=== PATIENT | female | born 1930 | race Caucasian/White ===

== ENCOUNTER 2017-08-17 20:19 | Observation (INO) ==
[2017-08-17] MEDS ORDERED: Acetaminophen 325 MG TABLET PO ONE (21:11)
[2017-08-17] MEDS ORDERED: Levofloxacin 750 MG/150 ML 750 MG/150 ML BAG IVPB ONE (21:11)
[2017-08-17 21:54] LABS: Basophils % 0.3 %; Eosinophils % 0.1 %; Hematocrit 37.1 % (35.3-44.9); Hemoglobin 12.3 g/dL (11.5-15.4); Immature Granulocytes % 0.7 % (0-4); Lymphocytes # 1.3 K/mcL (0.6-4.6); Lymphocytes % 9.5 %; Mean Corpuscular HGB Conc 33.2 g/dL (31.6-35.5); Mean Corpuscular Hemoglobin 30.5 pg (28.0-33.3); Mean Corpuscular Volume 92.1 fL (83.0-100.0); Mean Platelet Volume 10.6 fL (9.4-12.4); Monocytes # 1.3 K/mcL (0.0-1.3); Monocytes % 9.4 %; Platelet Count 169 K/mcL (140-400); Red Blood Count 4.03 M/mcL (3.82-4.97); Red Cell Distribution Width 13.5 % (11.5-14.5)
[2017-08-17 21:56] LABS: INR 1.1; Prothrombin Time 12.2 Seconds (9.4-12.1)
--- NOTE | 2017-08-17 21:59 | Emergency Department Note ---
Disposition Clinical Impression: Weakness Fever Qualifiers: Fever type: unspecified Qualified Code(s): R50.9 - Fever, unspecified Disposition: Admitted As Inpatient Referrals: NONE,PCP [Primary Care Provider] - Time of Disposition: 00:21 Weakness HPI - General Chief complaint: ED Weakness Stated complaint: weakness unable to ambulate Time Seen by Provider: 08/17/17 21:05 Source: patient, EMS Limitations: no limitations Nursing Notes Reviewed: Yes Vital Signs Reviewed: Yes - History of Present Illness HPI Narrative: Patient lives alone and does well on her own usually but over the last 3 days developed bilateral leg pain and achiness. States that it started in her right ankle. Initially felt like the gout. She reports that then it radiated up her leg and notes into her right arm and all of her joints in her left leg as well. Patient states that she got so weak in the last 24 hours that she was unable to get out of her chair. She had to call family member or neighbor to come help her and then today when she was so weak she called life squad to bring her here. She did not recognize that she had a fever. But she states that she does not have the strength to stand. She reports a cough over the last few days. Denies sputum production. She states that she is slightly dyspneic on exertion but is no worse than her baseline. She denies any dysuria, chest pain, abdominal pain, or rash Eyes headache or stiff neck Pt Subjective Complaint: generalized weakness/fatigue Onset (ago): day(s) (3) Duration: constant Location: generalized, RUE, LLE, RLE Migration: none Pain Severity: moderate Pain Scale: 8 If pain, quality: dull Improves with: rest Worsens with: movement Associated symptoms: Reports: denies other symptoms, loss of appetite - Related Data Allergies Allergy/AdvReac Type Severity Reaction Status Date / Time No Known Allergies Allergy Verified 08/17/17 20:31 All systems ED: reviewed and negative except as stated. Review of Systems: As Per HPI Past Medical History - Past Medical History Medical history: Reports: hypertension, thyroid disease - Social History Smoking Status: Never smoker Alcohol use: Reports: none Drug use: Reports: none Physical Exam Constitutional: Patient is oriented to person, place, and time. Skin color is pale Appears dry body habitus elderly and frail. Non toxic appearing. Head: Normocephalic and atraumatic. External ear exam normal Nose: Nose normal. Mouth/Throat: Uvula is midline, oropharynx is clear and dry Eyes: Conjunctivae nl, extraocular motions and lids are normal. Pupils are equal , round, and reactive to light. Neck: Normal range of motion and phonation normal. Neck supple. Cardiovascular: Normal rate, regular rhythm, normal heart sounds. Pacemaker left upper anterior chest which is not tender or erythematous. Patient also has pectus excavatum Pulmonary/Chest: No Respiratory distress. Respiratory Effort normal and breath sounds clear. Abdominal: Soft. Normal appearance and bowel sounds are normal. no tenderness, no masses, no guarding, no rebound Genital area has no evidence of labial swelling or redness. No obvious masses or lesions on external exam Musculoskeletal: Good distal pulses. Soft compartments. Brisk cap refill. But the patient does seem to be weak. Her muscles are quite thin but they are not firm and there is no tenderness on palpation of any of her muscles. She reports pain in her joints specifically her right knee and her left knee but not erythematous or warm. She does have limited range of motion because of pain in these joints. States that her hips do not hurt as bad as her knees. Extremities: Limited range of motion by pain.Intact peripheral pulses. No Edema. Extremity skin color nl, no calf tenderness or palpable cords. Neurological: GCS 15. 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 Speech clear and articulate. No facial droop. Patient is alert and oriented without evidence of obvious motor deficits Skin: Skin is warm, dry and intact. color is pale, cap refill is quick Psychiatric: Patient has normal mood and affect. Patient speech is normal and behavior is normal. Thought content normal. - General Limitations: no limitations General appearance: alert Course - Reevaluation(s) Reevaluation #1: Patient states she feels a bit better but she does not have a clear etiology of her fever. Neither do I have a reason for her joint aches. I returned to the bedside and obtained further history. And she states now she is actually hurting more in her right wrist. Her right knee. Her left knee. I reexamined her joints and there is some swelling of the right knee. But there is no erythema or any warmth. I elected to perform x-rays to evaluate for any acute fracture but also will do aspiration of the right knee to determine possible septic arthritis. I do feel as though she will require hospitalization since she cannot ambulate I considered the possibility of meningitis however she has no headache, no stiff neck, mentating completely appropriately. And I did not feel as though lumbar puncture was indicated at this time I reexamined skin and found no skin lesions or rash Her abdomen is soft and nontender to palpation although certainly at her age she could have intra-abdominal cause of her fever without significant physical exam findings and CT abdomen may be warranted Time: 22:54 Reevaluation #2: Vitals have improved with the patient's source of fever and acute joint pain is not been identified. Sedimentation rate pending. I talked with patient and elected to do right knee aspiration to determine possibility of septic arthritis. Ultrasound showed fluid collection and I obtained 9 mL of yellow fluid sent to lab. Patient is having too much pain to stand. She lives alone. She requires hospitalization. I will contact hospitalist to discuss case Time: 00:09 Reevaluation #3: Message left with hospitalist Dr. Morataya Time: 00:13 - Consultations Consultation #1: disc case w/ dr Bowles who agrees to accept pt in hospital for observation and testing. synovial fluid pending, this is a send out at this faciliyt. pt sts feeling better, she is aware and agreeable to inpt stay. Dr. Morataya has requested that I place inpatient orders as a courtesy. We have discussed them in detail. Time: 00:19 Vital Signs Temperature 100 F H 08/17/17 20:26 Pulse Rate 71 08/17/17 20:26 Respiratory Rate 18 08/17/17 20:26 Blood Pressure 143/81 08/17/17 20:26 O2 Sat by Pulse Oximetry 92 08/17/17 20:26 Temperature 100 F H 08/17/17 20:26 Pulse Rate 62 08/17/17 22:15 Respiratory Rate 18 08/17/17 22:15 Blood Pressure 191/75 08/17/17 22:15 O2 Sat by Pulse Oximetry 95 08/17/17 22:15 Oxygen Delivery Oxygen Delivery Room Air Weakness - MDM Narrative Medical decision making narrative: Elderly but otherwise well female with fever. We will determine cause by workup - Medical Records Medical records reviewed: Yes I reviewed the patient's medical records. - Lab Data Lab results reviewed: Yes I reviewed the patient's lab results. Result diagrams: 08/17/17 21:50 08/17/17 21:50 Lab Results 08/17/17 08/17/17 08/17/17 Range/Units 21:50 21:50 21:50 WBC 13.7 H (4.3-11.1) K/mcL RBC 4.03 (3.82-4.97) M/mcL Hgb 12.3 (11.5-15.4) g/dL Hct 37.1 (35.3-44.9) % MCV 92.1 (83.0-100.0) fL MCH 30.5 (28.0-33.3) pg MCHC 33.2 (31.6-35.5) g/dL RDW 13.5 (11.5-14.5) % Plt Count 169 (140-400) K/mcL MPV 10.6 (9.4-12.4) fL Immature Gran % 0.7 (0-4) % Seg Neutrophils % 80.0 % Lymphocytes % 9.5 % Monocytes % 9.4 % Eosinophils % 0.1 % Basophils % 0.3 % Neutrophils # 11.0 H (1.6-8.9) K/mcL Lymphocytes # 1.3 (0.6-4.6) K/mcL Monocytes # 1.3 (0.0-1.3) K/mcL Eosinophils # 0.0 (0.0-0.6) K/mcL Basophils # 0.0 (0.0-0.2) K/mcL PT 12.2 H (9.4-12.1) Seconds INR 1.1 Sodium 132 L (136-145) mEq/L Potassium 4.2 (3.5-5.1) mEq/L Chloride 99 (98-107) mEq/L Carbon Dioxide 24 (23-29) mEq/L BUN 24 H (8-23) mg/dL Creatinine 1.15 (0.60-1.20) mg/dL Est GFR ( Amer) 54 L (> 60) Est GFR (Non-Af Amer) 44 L (> 60) BUN/Creatinine Ratio 21 (6-26) Glucose 138 H (70-105) mg/dL Calculated Osmolality 280 (280-300) Lactic Acid (0.5-2.2) mmol/L Calcium 9.6 (8.6-10.3) mg/dL Total Bilirubin 1.1 H (0.3-1.0) mg/dL Direct Bilirubin 0.2 (0.0-0.2) mg/dL Indirect Bilirubin 0.9 (0.0-1.2) mg/dL AST 14 (13-39) Units/L ALT 12 (7-52) Units/L Alkaline Phosphatase 41 (34-104) Units/L Troponin I < 0.03 (< 0.04) ng/mL Serum Total Protein 7.0 (6.4-8.9) g/dL Albumin 4.0 (3.5-5.7) g/dL Globulin 3.0 (2.4-3.5) g/dL Albumin/Globulin Ratio 1.3 (1.1-2.2) Urine Color (Yellow) Urine Clarity (Clear) Urine pH (5.0-8.0) pH Units Ur Specific [place] (1.010-1.025) Urine Protein (Neg-Trace) mg/dL Urine Glucose (UA) (Normal) mg/dL Urine Ketones (Negative) mg/dL Urine Blood (Negative) Urine Nitrite (Negative) Urine Bilirubin (Negative) Urine Urobilinogen (Normal) mg/dL Ur Leukocyte Esterase (Negative) Urine Microscopic RBC (0-3) per hpf Amorphous Sediment (Few) Hyaline Casts (None-Few) per lpf Ur Culture Indicated? (NO) 08/17/17 08/17/17 Range/Units 21:50 22:10 WBC (4.3-11.1) K/mcL RBC (3.82-4.97) M/mcL Hgb (11.5-15.4) g/dL Hct (35.3-44.9) % MCV (83.0-100.0) fL MCH (28.0-33.3) pg MCHC (31.6-35.5) g/dL RDW (11.5-14.5) % Plt Count (140-400) K/mcL MPV (9.4-12.4) fL Immature Gran % (0-4) % Seg Neutrophils % % Lymphocytes % % Monocytes % % Eosinophils % % Basophils % % Neutrophils # (1.6-8.9) K/mcL Lymphocytes # (0.6-4.6) K/mcL Monocytes # (0.0-1.3) K/mcL Eosinophils # (0.0-0.6) K/mcL Basophils # (0.0-0.2) K/mcL PT (9.4-12.1) Seconds INR Sodium (136-145) mEq/L Potassium (3.5-5.1) mEq/L Chloride (98-107) mEq/L Carbon Dioxide (23-29) mEq/L BUN (8-23) mg/dL Creatinine (0.60-1.20) mg/dL Est GFR ( Amer) (> 60) Est GFR (Non-Af Amer) (> 60) BUN/Creatinine Ratio (6-26) Glucose (70-105) mg/dL Calculated Osmolality (280-300) Lactic Acid 1.0 (0.5-2.2) mmol/L Calcium (8.6-10.3) mg/dL Total Bilirubin (0.3-1.0) mg/dL Direct Bilirubin (0.0-0.2) mg/dL Indirect Bilirubin (0.0-1.2) mg/dL AST (13-39) Units/L ALT (7-52) Units/L Alkaline Phosphatase (34-104) Units/L Troponin I (< 0.04) ng/mL Serum Total Protein (6.4-8.9) g/dL Albumin (3.5-5.7) g/dL Globulin (2.4-3.5) g/dL Albumin/Globulin Ratio (1.1-2.2) Urine Color Yellow (Yellow) Urine Clarity Slightly Cloudy A (Clear) Urine pH 6.5 (5.0-8.0) pH Units Ur Specific [place] 1.025 (1.010-1.025) Urine Protein 100 H (Neg-Trace) mg/dL Urine Glucose (UA) 100 H (Normal) mg/dL Urine Ketones Negative (Negative) mg/dL Urine Blood Small H (Negative) Urine Nitrite Negative (Negative) Urine Bilirubin Negative (Negative) Urine Urobilinogen Normal (Normal) mg/dL Ur Leukocyte Esterase Negative (Negative) Urine Microscopic RBC 3-5 H (0-3) per hpf Amorphous Sediment Few (Few) Hyaline Casts Few (None-Few) per lpf Ur Culture Indicated? NO (NO) - Radiology Data Radiology results reviewed: Yes I reviewed the patient's radiology results. Portable chest x-ray per radiology reveals no acute abnormalities impression "stable portable study" I reviewed patient's x-ray interpretation from radiology on hip and knee. 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 EKG results narrative: EKG shows rate of 60. Paced rhythm. Prominent QRS and inverted T waves in leads V5 and V6. Does not look like acute changes but uncertain as to whether or not it could be some ischemic ST depression versus the reciprocal change from the LVH Interpretation: no acute changes
[2017-08-17 22:11] LABS: Troponin I < 0.03 ng/mL (< 0.04)
[2017-08-17 22:13] LABS: Alanine Aminotransferase 12 Units/L (7-52); Albumin/Globulin Ratio 1.3 (1.1-2.2); Alkaline Phosphatase 41 Units/L (34-104); Aspartate Amino Transferase 14 Units/L (13-39); BUN/Creatinine Ratio 21 (6-26); Bilirubin,Direct 0.2 mg/dL (0.0-0.2); Bilirubin,Indirect 0.9 mg/dL (0.0-1.2); Bilirubin,Total 1.1 mg/dL (0.3-1.0); Blood Urea Nitrogen 24 mg/dL (8-23); Calcium 9.6 mg/dL (8.6-10.3); Carbon Dioxide 24 mEq/L (23-29); Chloride 99 mEq/L (98-107); Glucose 138 mg/dL (70-105); Osmolality,Calculated 280 (280-300); Potassium 4.2 mEq/L (3.5-5.1); Sodium 132 mEq/L (136-145); eGFR For African Americans 54 (> 60); eGFR For Non-African Americans 44 (> 60)
[2017-08-17 22:19] LABS: Bilirubin,Urine Negative (Negative); Blood,Urine Small (Negative); Clarity,Urine Slightly Cloudy (Clear); Glucose,Urine (UA) 100 mg/dL (Normal); Ketones,Urine Negative (Negative); Leukocyte Esterase,Urine Negative (Negative); Nitrite,Urine Negative (Negative); PH,Urine 6.5 pH Units (5.0-8.0); Protein,Urine 100 mg/dL (Neg-Trace); Specific Gravity,Urine 1.025 (1.010-1.025); Urobilinogen,Urine Normal (Normal)
[2017-08-17 22:22] LABS: Color,Urine Yellow (Yellow)
[2017-08-17 22:23] LABS: Amorphous Sediment,Urine Few (Few); Hyaline Casts,Urine Few per lpf (None-Few)
[2017-08-17] MEDS ORDERED: Lidocaine 1% 20 ML MDV INFILT ONE (22:57)
[2017-08-18 01:21] LABS: Source,Synovial Fluid Right knee
[2017-08-18] MEDS ORDERED: Acetaminophen 325 MG TABLET PO PRN (01:43)
[2017-08-18] MEDS ORDERED: Naloxone 0.4 MG/ML INJ IVP PRN (01:43)
[2017-08-18] MEDS: 0.9 % Sodium Chloride 1,000 ML IVC SCH ×3 (02:24→15:55)
[2017-08-18] MEDS: Ibuprofen 400 MG TABLET PO PRN ×2 (02:27→09:15)
[2017-08-18] MEDS: *HR* Enoxaparin 30 MG/0.3 ML SYRINGE SQ SCH (05:39)
[2017-08-18 06:04] LABS: Basophils # 0.1 K/mcL (0.0-0.2); Basophils % 0.4 %; Eosinophils # 0.1 K/mcL (0.0-0.6); Eosinophils % 0.4 %; Hematocrit 33.7 % (35.3-44.9); Hemoglobin 11.1 g/dL (11.5-15.4); Immature Granulocytes % 0.6 % (0-4); Lymphocytes # 1.2 K/mcL (0.6-4.6); Lymphocytes % 10.7 %; Mean Corpuscular HGB Conc 32.9 g/dL (31.6-35.5); Mean Corpuscular Hemoglobin 30.2 pg (28.0-33.3); Mean Corpuscular Volume 91.8 fL (83.0-100.0); Mean Platelet Volume 10.7 fL (9.4-12.4); Monocytes # 1.5 K/mcL (0.0-1.3); Monocytes % 13.5 %; Neutrophils # 8.4 K/mcL (1.6-8.9); Platelet Count 153 K/mcL (140-400); Red Blood Count 3.67 M/mcL (3.82-4.97); Red Cell Distribution Width 13.4 % (11.5-14.5); Segmented Neutrophils % 74.4 %
[2017-08-18 06:16] LABS: Albumin 3.5 g/dL (3.5-5.7); Albumin/Globulin Ratio 1.3 (1.1-2.2); Calcium 9.1 mg/dL (8.6-10.3); Globulin 2.8 g/dL (2.4-3.5); Potassium 3.8 mEq/L (3.5-5.1); Total Protein 6.3 g/dL (6.4-8.9)
[2017-08-18 09:35] LABS: Appearance,Synovial Fluid Cloudy (Clear-Hazy); Color,Synovial Fluid Straw (Straw)
[2017-08-18 11:48] LABS: Lymphocytes,Synovial Fluid 1 %
--- NOTE | 2017-08-18 13:49 | Internal Med History&Physical ---
Date of Encounter: 08/18/17 Time of Encounter: 13:46 Assessment and Plan (1) Weakness Current visit: Yes Status: Acute Will order PT to eval and treat. (2) Gout Current visit: Yes Status: Acute Will order uric acid and colchicine. Qualifiers: Gout site: knee Gout etiology: unspecified cause Chronicity: acute Laterality: right Qualified Code(s): M10.9 - Gout, unspecified Internal Medicine - H&P: HPI Admitted From: Emergency Dept Plans for Post Hospital Care: Home History of present illness: Ms. Murray is a 87 year old female who presented to the emergency room last night for complains of increased weakness and joint pain. Patient states this pain started about 2 days ago in her right ankle and progress to her right knee. States it felt like gout which she has had in the past. States weakness has improved today. Patient is afebrile. Denies fever, chills, nausea, vomiting or diarrhea. States she is usually very active and most her own grass. Discussed workup for septic arthritis which she will continue on Levaquin for as well as starting colchicine for gout. Will order physical therapy to eval and treat. Past medical history includes hypertension, gout and thyroid disease. Past Med Surg Social Fam HX - Past Medical History Medical history: hypertension, thyroid disease - Social History Smoking Status: Never smoker Smokeless Tobacco Status: No Alcohol use: none Drug use: none - Family History Father Living Status: Age at : 83 Cause of : Cancer Hx Family Cardiac Disorders: No Hx Family Respiratory Disorders: No Hx Family Cancer: Yes Mother Living Status: Age at : 89 Cause of : Stroke Internal Medicine - H&P: Meds 3 Allergy/AdvReac Type Severity Reaction Status Date / Time No Known Allergies Allergy Verified 08/17/17 20:31 All Systems PM: A 10-system review of systems was performed and is negative for pertinent findings except as documented above in the HPI. - Constitutional Constitutional: weakness, no chills, no fever(s), no night sweats - EENT Eyes: no change in vision, no discharge, no pain, no photophobia Ears: no ear discharge, no ear pain, no tinnitus Nose, mouth and throat: no dysphagia, no nasal discharge, no neck pain, no sore throat - Cardiovascular Cardiovascular ROS IM: no chest pain, no diaphoresis, no dyspnea, no lightheadedness, no palpitations, no syncope - Respiratory Respiratory: no cough, no dyspnea, no wheezing, no excessive phlegm production - Gastrointestinal Gastrointestinal: no abdominal pain, no diarrhea, no hematemesis, no hematochezia, no melena, no nausea, no vomiting - Genitourinary Genitourinary: no change in urinary stream, no dysuria, no flank pain, no hematuria - Musculoskeletal Musculoskeletal ROS IM: arthralgias, no numbness, no tingling - Integumentary Integumentary IM: no rash, no unusual bruising - Neurological Neurological ROS: no confusion, no convulsions, no focal weakness, no numbness, no tingling, no tremor(s) - Hematologic/Lymphatic Hematologic/Lymphatic: no easy bruising - Constitutional Vitals: Temp Pulse Resp BP Pulse Ox 97.3 F L 67 14 181/91 95 08/18/17 11:59 08/18/17 11:59 08/18/17 11:59 08/18/17 11:59 08/18/17 11:59 General appearance: Present: cooperative, A&O X 3, pleasant, no acute distress, answers questions appropriately - Head Head exam: Present: atraumatic, normocephalic - Eye Eye exam: Present: PERRL, conjuntiva pink, sclera anicteric Pupils: Present: PERRL - Neck Neck exam general surgery: Present: supple, trachea midline. Absent: lymphadenopathy - Respiratory Respiratory exam: Present: CTAB. Absent: accessory muscle use, rales, rhonchi, wheezes - Cardiovascular Cardiovascular exam: Present: RRR, +S1, +S2. Absent: diastolic murmur, gallop, rubs, systolic murmur - GI/Abdominal GI/Abdominal exam: Present: normal bowel sounds, soft, no peritoneal signs. Absent: distended, tenderness - Extremities Exam Extremities exam: Present: full ROM, pedal edema, warm, radial pulses palpable and symmetrical. Absent: calf tenderness, cyanotic Additional comments: Slight pitting edema 1+ bilateral lower extremities. - Neurological Exam Neurological exam: Present: CN II-XII intact, oriented X3, no focal deficits. Absent: pronater drift, facial droop, speech deficit - Skin Skin exam: Present: dry, intact Internal Med - H&P Results - Labs CBC & Chem 7: 05/01/18 05:25 08/18/17 05:25 Labs: Short CBC 08/18/17 Range/Units 05:25 WBC 11.3 H (4.3-11.1) K/mcL Hgb 11.1 L (11.5-15.4) g/dL Hct 33.7 L (35.3-44.9) % Plt Count 153 (140-400) K/mcL Neutrophils # 8.4 (1.6-8.9) K/mcL BMP 08/18/17 05:25 Sodium 133 L Potassium 3.8 Chloride 100 Carbon Dioxide 27 BUN 25 H Creatinine 1.08 Glucose 93 Calcium 9.1 Liver Function 08/18/17 Range/Units 05:25 Total Bilirubin 1.0 (0.3-1.0) mg/dL AST 13 (13-39) Units/L ALT 10 (7-52) Units/L Alkaline Phosphatase 37 (34-104) Units/L Albumin 3.5 (3.5-5.7) g/dL
--- NOTE | 2017-08-18 16:19 | Electrocardiograph Report ---
[address] [address] Test Date: 2017-08-17 Pat Name: Wilda Murray Department: 2000 Room: 116 Gender: F Animal Killer: CAROLEE : 1930 Requested By: [id number] Order Number: [id number] Reading MD: Reuben Verma Measurements Intervals [place] Rate: 60 P: 230 AK: 358 QRS: -27 QRSD: 98 T: -68 QT: 417 QTc: 417 Interpretive Statements ELECTRONIC ATRIAL PACEMAKER INCOMPLETE RIGHT BUNDLE BRANCH BLOCK LEFT VENTRICULAR HYPERTROPHY AND ST-T CHANGE POSSIBLE SEPTAL MYOCARDIAL INFARCTION, PROBABLY OLD Electronically Signed On 08-18-2017 16:17:45 EDT by Reuben Verma
[2017-08-18] MEDS: Diltiazem CD (24hr) 120 MG CAPSULE PO SCH (16:21)
[2017-08-18] MEDS: Aspirin Enteric Coated 325 MG Tablet PO SCH (16:22)
[2017-08-18] MEDS: *HR* Digoxin 0.125 MG TABLET PO SCH (16:23)
[2017-08-18] MEDS: cloNIDine HCl 0.1 MG TABLET PO PRN ×2 (17:07→23:46)
[2017-08-18] MEDS: cloNIDine HCl 0.1 MG TABLET PO SCH (19:29)
[2017-08-18] MEDS: Colchicine 0.6 MG TABLET PO SCH (19:54)
[2017-08-19] MEDS: cloNIDine HCl 0.1 MG TABLET PO PRN (04:50)
[2017-08-19] MEDS: *HR* Enoxaparin 30 MG/0.3 ML SYRINGE SQ SCH (04:54)
[2017-08-19] MEDS: *HR* Digoxin 0.125 MG TABLET PO SCH (08:20)
[2017-08-19] MEDS: Cholecalciferol (D-3) 1,000 UNIT TABLET PO SCH (08:20)
[2017-08-19] MEDS: Aspirin Enteric Coated 325 MG Tablet PO SCH (08:20)
[2017-08-19] MEDS: Colchicine 0.6 MG TABLET PO SCH ×2 (08:20→20:36)
[2017-08-19] MEDS: Diltiazem CD (24hr) 120 MG CAPSULE PO SCH (08:20)
[2017-08-19] MEDS: cloNIDine HCl 0.1 MG TABLET PO SCH ×2 (08:20→20:36)
[2017-08-19] MEDS: Levofloxacin 500 MG/100 ML 500 MG/100 ML BAG IVPB SCH (17:45)
[2017-08-19] MEDS: traMADol 50 MG TABLET PO PRN (17:45)
[2017-08-20] MEDS: traMADol 50 MG TABLET PO PRN ×2 (06:39→17:52)
[2017-08-20] MEDS: *HR* Enoxaparin 30 MG/0.3 ML SYRINGE SQ SCH (06:39)
[2017-08-20] MEDS: Colchicine 0.6 MG TABLET PO SCH ×2 (09:23→22:31)
[2017-08-20] MEDS: Aspirin Enteric Coated 325 MG Tablet PO SCH (09:23)
[2017-08-20] MEDS: cloNIDine HCl 0.1 MG TABLET PO SCH ×2 (09:24→22:31)
[2017-08-20] MEDS: *HR* Digoxin 0.125 MG TABLET PO SCH (09:24)
[2017-08-20] MEDS: Cholecalciferol (D-3) 1,000 UNIT TABLET PO SCH (09:24)
[2017-08-20] MEDS: Diltiazem CD (24hr) 120 MG CAPSULE PO SCH (09:24)
--- NOTE | 2017-08-20 12:12 | Internal Med Progress Note ---
Date of Encounter: 08/20/17 Time of Encounter: 12:10 - Assessment and plan (1) Weakness Current Visit: Yes Status: Acute Assessment and plan: She is to return to activity but this is limited. Her culture is negative for a cause of infection or arthritis. Will continue with antigout medicines and follow with her activity, assessment by PT, consider further evaluation. (2) Gout Current Visit: Yes Status: Acute Assessment and plan: See above. Qualifiers: Gout site: knee Gout etiology: unspecified cause Chronicity: acute Laterality: right Qualified Code(s): M10.9 - Gout, unspecified - Time Spent With Patient 25 - 35 minutes - Subjective Interval history: Patient is still having weakness and pain in her left knee. She denies other problems. She has pain at other joints but this is not really the problem compared to her left knee and left calf. She would like to be discharged to home. Patient has no complaint of chest discomfort, dyspnea, orthopnea, palpitations, nausea or vomiting, constipation or diarrhea, other changes in bowel habits, difficulty with urination, rash or itching, or other new complaints, except as mentioned above. Review of systems is otherwise unremarkable. - Constitutional Vitals: Temp Pulse Resp BP Pulse Ox 97.9 F 70 18 128/71 95 08/20/17 11:34 08/20/17 11:34 08/20/17 11:34 08/20/17 11:34 08/20/17 11:34 General appearance: Present: pleasant, answers questions appropriately Exam: Examination: (Except as mentioned above): General: In no apparent distress. Alert and oriented 3. Nondiaphoretic. Head: Atraumatic and normocephalic. Respiratory: No use of accessory muscles. Lungs are clear throughout. Normal airflow. Cardiovascular: Regular rate and rhythm without murmur appreciated. Abdomen: Bowel sounds are normal. No hepatosplenomegaly mass or tenderness appreciated. Obese and therefore difficult to palpate deeply. Extremities: No cyanosis clubbing or edema. Skin: Warm and non-diaphoretic with no new lesions noted. Internal Medicine: Result - Labs CBC & Chem 7: 08/18/17 05:25 08/18/17 05:25 - ABG Interpretation ABG results: PT/INR, D-dimer PT 12.2 Seconds (9.4-12.1) H 08/17/17 21:50 Consult Discharge Plan - Plan Referrals: NONE,PCP [Primary Care Provider] -
--- NOTE | 2017-08-20 14:51 | Internal Med Progress Note ---
Date of Encounter: 08/20/17 Time of Encounter: 14:47 - Assessment and plan (1) Right knee pain Current Visit: Yes Status: Acute Assessment and plan: Patient continues with complaint of pain to her right knee and ankle. Right knee continues to be swollen with no erythema. Patient states pain during range of motion. Patient had aspiration of synovial fluid which on the preliminary showed is cloudy with elevated TNC and WBC. Uric acid 3.6. Patient 's CBC showed normal white count and patient has been afebrile. Preliminary shows no bacterial growth. We will continue with current medications. We will review culture tomorrow Qualifiers: Chronicity: acute Qualified Code(s): M25.561 - Pain in right knee (2) HTN (hypertension) Current Visit: Yes Status: Acute Assessment and plan: Vital signs stable. We will continue with current medications. Qualifiers: Hypertension type: essential hypertension Qualified Code(s): I10 - Essential (primary) hypertension - Time Spent With Patient less than 15 minutes - Subjective Interval history: Patient continues with complaints of pain to her right ankle and knee. Patient states that her pain seems to be somewhat lessened today. Denies any other discomfort or shortness of breath. - Constitutional Vitals: Temp Pulse Resp BP Pulse Ox 97.9 F 70 18 128/71 95 08/20/17 11:34 08/20/17 11:34 08/20/17 11:34 08/20/17 11:34 08/20/17 11:34 General appearance: Present: A&O X 3, pleasant, answers questions appropriately - Head Head exam: Present: atraumatic, normocephalic - Eye Eye exam: Present: PERRL, conjuntiva pink, sclera anicteric Pupils: Present: PERRL - Neck Neck exam general surgery: Present: supple, trachea midline. Absent: lymphadenopathy - Respiratory Respiratory exam: Present: CTAB. Absent: accessory muscle use, rales, rhonchi, wheezes - Cardiovascular Cardiovascular exam: Present: RRR, +S1, +S2. Absent: diastolic murmur, gallop, rubs, systolic murmur - GI/Abdominal GI/Abdominal exam: Present: normal bowel sounds, soft, no peritoneal signs. Absent: distended, tenderness - Extremities Exam Extremities exam: Present: warm, radial pulses palpable and symmetrical. Absent : calf tenderness, cyanotic, pedal edema Additional comments: Right knee appears swollen with increased pain during range of motion. No erythema noted - Neurological Exam Neurological exam: Present: CN II-XII intact, oriented X3, no focal deficits. Absent: pronater drift, facial droop, speech deficit - Skin Skin exam: Present: dry, intact Internal Medicine: Result - Labs CBC & Chem 7: 08/18/17 05:25 08/18/17 05:25 - ABG Interpretation ABG results: PT/INR, D-dimer PT 12.2 Seconds (9.4-12.1) H 08/17/17 21:50 Consult Discharge Plan - Plan Referrals: NONE,PCP [Primary Care Provider] -
[2017-08-21] MEDS: traMADol 50 MG TABLET PO PRN (00:09)
[2017-08-21] MEDS: cloNIDine HCl 0.1 MG TABLET PO PRN (00:09)
[2017-08-21] MEDS: *HR* Enoxaparin 30 MG/0.3 ML SYRINGE SQ SCH (06:48)
[2017-08-21] MEDS: Aspirin Enteric Coated 325 MG Tablet PO SCH (08:00)
[2017-08-21] MEDS: Cholecalciferol (D-3) 1,000 UNIT TABLET PO SCH (08:00)
[2017-08-21] MEDS: Colchicine 0.6 MG TABLET PO SCH (08:00)
[2017-08-21] MEDS: cloNIDine HCl 0.1 MG TABLET PO SCH (08:01)
[2017-08-21] MEDS: Diltiazem CD (24hr) 120 MG CAPSULE PO SCH (08:01)
[2017-08-21] MEDS: *HR* Digoxin 0.125 MG TABLET PO SCH (08:01)
--- NOTE | 2017-08-21 12:15 | Internal Med Progress Note ---
Date of Encounter: 08/21/17 Time of Encounter: 12:13 - Assessment and plan (1) Right knee pain Current Visit: Yes Status: Acute Assessment and plan: Patient continues with complaint of pain to her right knee and ankle, which she states has been improving over the past 2 days. Patient states that pain increases during range of motion. Right knee continues to be swollen with no erythema. Patient had aspiration of synovial fluid which on the preliminary showed is cloudy with elevated TNC and WBC. Cultures continue to be pending with preliminary showing no growth. Uric acid 3.6. Patient seen by orthopedic surgeon today as consul with recommendations for a venous Doppler to right leg. Physical therapy evaluating. We will continue with current medications. We will review culture tomorrow Qualifiers: Chronicity: acute Qualified Code(s): M25.561 - Pain in right knee (2) HTN (hypertension) Current Visit: Yes Status: Acute Assessment and plan: Vital signs stable. We will continue with current medications. Qualifiers: Hypertension type: essential hypertension Qualified Code(s): I10 - Essential (primary) hypertension - Time Spent With Patient less than 15 minutes - Subjective Interval history: Patient continues with complaints of pain to her right ankle and knee, but states that her pain has improved over the past 2 days. Patient was seen by orthopedic surgeon today with recommendations for a venous Doppler on the right leg. Patient being evaluated by physical therapy. Denies any other discomfort or shortness of breath. - Constitutional Vitals: Temp Pulse Resp BP Pulse Ox 97.8 F 63 18 141/79 95 08/21/17 11:22 08/21/17 11:22 08/21/17 11:22 08/21/17 11:22 08/21/17 11:22 General appearance: Present: A&O X 3, pleasant, answers questions appropriately - Head Head exam: Present: atraumatic, normocephalic - Eye Eye exam: Present: PERRL, conjuntiva pink, sclera anicteric Pupils: Present: PERRL - Neck Neck exam general surgery: Present: supple, trachea midline. Absent: lymphadenopathy - Respiratory Respiratory exam: Present: CTAB. Absent: accessory muscle use, rales, rhonchi, wheezes - Cardiovascular Cardiovascular exam: Present: RRR, +S1, +S2. Absent: diastolic murmur, gallop, rubs, systolic murmur - GI/Abdominal GI/Abdominal exam: Present: normal bowel sounds, soft, no peritoneal signs. Absent: distended, tenderness - Extremities Exam Extremities exam: Present: warm, radial pulses palpable and symmetrical. Absent : calf tenderness, cyanotic, pedal edema Additional comments: Right leg slightly swollen in comparison to left. Nonpitting edema. Complaints of tenderness to right knee and ankle during range of motion. No obvious injury or erythema noted to knee or ankle. Right knee slightly swollen - Neurological Exam Neurological exam: Present: CN II-XII intact, oriented X3, no focal deficits. Absent: pronater drift, facial droop, speech deficit - Skin Skin exam: Present: dry, intact Internal Medicine: Result - Labs CBC & Chem 7: 08/18/17 05:25 08/18/17 05:25 - ABG Interpretation ABG results: PT/INR, D-dimer PT 12.2 Seconds (9.4-12.1) H 08/17/17 21:50 Consult Discharge Plan - Plan Referrals: NONE,PCP [Primary Care Provider] -
[2017-08-21 16:38] VITALS: BP 164/62
[2017-08-21] MEDS: Levofloxacin 500 MG/100 ML 500 MG/100 ML BAG IVPB SCH (18:30)
== END 2017-08-21 18:38 | disposition other institution (70) ==
LOC: EMEROOGRE 20:19 → INPGRE 20:19

== ENCOUNTER 2017-08-21 16:34 | Inpatient (IN) ==
[2017-08-21] MEDS: cloNIDine HCl 0.1 MG TABLET PO SCH (20:12)
[2017-08-21] MEDS: cloNIDine HCl 0.1 MG TABLET PO PRN (20:12)
[2017-08-21] MEDS: Colchicine 0.6 MG TABLET PO SCH (20:13)
[2017-08-22] MEDS: traMADol 50 MG TABLET PO PRN ×3 (02:35→16:45)
[2017-08-22] MEDS: cloNIDine HCl 0.1 MG TABLET PO PRN (02:36)
[2017-08-22] MEDS: *HR* Enoxaparin 30 MG/0.3 ML SYRINGE SQ SCH (05:33)
[2017-08-22] MEDS: Colchicine 0.6 MG TABLET PO SCH ×2 (08:07→20:14)
[2017-08-22] MEDS: *HR* Digoxin 0.125 MG TABLET PO SCH (08:08)
[2017-08-22] MEDS: Cholecalciferol (D-3) 1,000 UNIT TABLET PO SCH (08:08)
[2017-08-22] MEDS: Aspirin Enteric Coated 325 MG Tablet PO SCH (08:08)
[2017-08-22] MEDS: cloNIDine HCl 0.1 MG TABLET PO SCH ×2 (08:08→20:15)
[2017-08-22] MEDS: Diltiazem CD (24hr) 120 MG CAPSULE PO SCH (08:08)
--- NOTE | 2017-08-22 15:18 | Internal Med History&Physical ---
Date of Encounter: 08/22/17 Time of Encounter: 02:00 Assessment and Plan (1) Weakness Current visit: No Status: Acute Etiology is uncertain. Will attempt a brief steroid burst and follow. (2) Gout Current visit: No Status: Acute Has not improved with oral colchicine on a steady dose. Will continue until arthritis is improved. Recommend that even if improves with steroids, should have rheumatology follow-up. Qualifiers: Gout site: knee Gout etiology: unspecified cause Chronicity: acute Laterality: right Qualified Code(s): M10.9 - Gout, unspecified (3) HTN (hypertension) Current visit: No Status: Acute Clinically stable. We will continue home regimen and follow. Qualifiers: Hypertension type: essential hypertension Qualified Code(s): I10 - Essential (primary) hypertension Internal Medicine - H&P: HPI Chief complaint: Right hip pain and inability to walk. Admitted From: Home Plans for Post Hospital Care: Home History of present illness: Patient has been admitted with inability to walk. Has not grown any organism from aspiration of her right knee. Has polyarthritis and no other findings. Seen in consultation by orthopedic clinic where ultrasound and acute radiographs were requested but note is not available. Now admitted for swelling treatment to try to return her to home and previous function. Past Med Surg Social Fam HX - Past Medical History Medical history: hypertension, thyroid disease - Social History Smoking Status: Never smoker Smokeless Tobacco Status: No Alcohol use: none Drug use: none - Family History Father Living Status: Hx Family Cardiac Disorders: No Hx Family Respiratory Disorders: No Hx Family Cancer: Yes Mother Living Status: Internal Medicine - H&P: Meds Aspirin Enteric Coated [Aspirin EC] 325 mg PO DAILY 08/18/17 [History] Atorvastatin Calcium [Lipitor] 10 mg PO DAILY 08/18/17 [History] Calcium Carbonate/Vitamin D3 [Oyster Shell 250 mg + Vit D Tb] 1 each PO DAILY [History] CloNIDine HCl [Kapvay] 0.1 mg PO DAILY 08/18/17 [History] Digoxin [Lanoxin] 125 mcg PO DAILY 08/18/17 [History] Diltiazem HCl [Diltiazem 24Hr Cd] 120 mg PO DAILY 08/18/17 [History] Levothyroxine Sodium [Levoxyl] 100 mcg PO DAILY 08/18/17 [History] Naproxen [Naprosyn] 500 mg PO BID PRN 08/18/17 [History] Sotalol 80 mg PO DAILY 08/18/17 [History] 3 Allergy/AdvReac Type Severity Reaction Status Date / Time No Known Allergies Allergy Verified 08/17/17 20:31 All Systems PM: A 10-system review of systems was performed and is negative for pertinent findings except as documented above in the HPI. Has had intermittent constipation but is otherwise unremarkable. - Constitutional Vitals: Temp Pulse Resp BP Pulse Ox 98.2 F 77 18 175/83 95 08/22/17 07:05 08/22/17 07:05 08/22/17 07:05 08/22/17 07:05 08/22/17 07:05 Exam: See previous H&P exam. Examination: (Except as mentioned above): General: In no apparent distress. Alert and oriented 3. Nondiaphoretic. Head: Atraumatic and normocephalic. Respiratory: No use of accessory muscles. Lungs are clear throughout. Normal airflow. Cardiovascular: Regular rate and rhythm without murmur appreciated. Abdomen: Bowel sounds are normal. No hepatosplenomegaly mass or tenderness appreciated. Patient is examined upright in chair and this also limits exam. Extremities: No cyanosis clubbing or edema. Still with some joint swelling at right knee, right ankle, right MCPs. Skin: Warm and non-diaphoretic with no new lesions noted.
[2017-08-22] MEDS: predniSONE 20 MG TABLET PO SCH (16:45)
[2017-08-23] MEDS: *HR* Enoxaparin 30 MG/0.3 ML SYRINGE SQ SCH (05:36)
[2017-08-23] MEDS: Colchicine 0.6 MG TABLET PO SCH ×2 (08:50→20:14)
[2017-08-23] MEDS: Diltiazem CD (24hr) 120 MG CAPSULE PO SCH (08:50)
[2017-08-23] MEDS: *HR* Digoxin 0.125 MG TABLET PO SCH (08:50)
[2017-08-23] MEDS: Cholecalciferol (D-3) 1,000 UNIT TABLET PO SCH (08:51)
[2017-08-23] MEDS: predniSONE 20 MG TABLET PO SCH (08:51)
[2017-08-23] MEDS: cloNIDine HCl 0.1 MG TABLET PO SCH ×2 (08:51→20:14)
[2017-08-23] MEDS: Aspirin Enteric Coated 325 MG Tablet PO SCH (08:51)
[2017-08-23] MEDS: traMADol 50 MG TABLET PO PRN (13:20)
[2017-08-23] MEDS: Levofloxacin 500 MG/100 ML 500 MG/100 ML BAG IVPB SCH (20:14)
[2017-08-24] MEDS: *HR* Enoxaparin 30 MG/0.3 ML SYRINGE SQ SCH (06:12)
[2017-08-24 06:43] LABS: INR 1.1; Prothrombin Time 11.6 Seconds (9.4-12.1)
[2017-08-24 06:46] LABS: Activated Partial Thrombo Time 24.9 Seconds (26.0-36.0); Basophils % 0.2 %; Eosinophils % 0.3 %; Hematocrit 32.5 % (35.3-44.9); Hemoglobin 10.8 g/dL (11.5-15.4); Immature Granulocytes % 1.1 % (0-4); Lymphocytes # 1.2 K/mcL (0.6-4.6); Mean Corpuscular HGB Conc 33.2 g/dL (31.6-35.5); Mean Corpuscular Hemoglobin 30.3 pg (28.0-33.3); Mean Platelet Volume 10.1 fL (9.4-12.4); Monocytes # 1.2 K/mcL (0.0-1.3); Neutrophils # 7.1 K/mcL (1.6-8.9); Platelet Count 298 K/mcL (140-400); Red Blood Count 3.57 M/mcL (3.82-4.97); Red Cell Distribution Width 13.2 % (11.5-14.5); Segmented Neutrophils % 74.4 %
[2017-08-24 06:54] LABS: BUN/Creatinine Ratio 29 (6-26); Blood Urea Nitrogen 26 mg/dL (8-23); Calcium 9.2 mg/dL (8.6-10.3); Carbon Dioxide 32 mEq/L (23-29); Chloride 99 mEq/L (98-107); Glucose 113 mg/dL (70-105); Osmolality,Calculated 286 (280-300); Potassium 4.6 mEq/L (3.5-5.1); Sodium 135 mEq/L (136-145); eGFR For African Americans > 60 (> 60); eGFR For Non-African Americans 58 (> 60)
[2017-08-24] MEDS: predniSONE 20 MG TABLET PO SCH (09:33)
[2017-08-24] MEDS: Aspirin Enteric Coated 325 MG Tablet PO SCH (09:33)
[2017-08-24] MEDS: *HR* Digoxin 0.125 MG TABLET PO SCH (09:34)
[2017-08-24] MEDS: cloNIDine HCl 0.1 MG TABLET PO SCH ×2 (09:34→19:48)
[2017-08-24] MEDS: Cholecalciferol (D-3) 1,000 UNIT TABLET PO SCH (09:36)
--- NOTE | 2017-08-24 12:08 | Internal Med Progress Note ---
Date of Encounter: 08/24/17 Time of Encounter: 12:05 - Assessment and plan (1) Right knee pain Current Visit: Yes Status: Acute Assessment and plan: Patient continues as slight swelling to right knee and leg. States that she continues to have pain to her right knee and ankle, but has been improving over the last few days. Uric acid was only 3.6. Right knee synovial fluid was negative on culture and showed no crystals. We will continue current medications. Qualifiers: Chronicity: acute Qualified Code(s): M25.561 - Pain in right knee (2) HTN (hypertension) Current Visit: No Status: Acute Assessment and plan: Vital signs stable. We will continue with current medications. Qualifiers: Hypertension type: essential hypertension Qualified Code(s): I10 - Essential (primary) hypertension - Time Spent With Patient less than 15 minutes - Subjective Interval history: Patient appears relaxed. States that the pain to her right knee and ankle continues to improve. States that she is able to walk better over the last fee days. Denies any dyspnea or productive cough. - Constitutional Vitals: Temp Pulse Resp BP Pulse Ox 97.6 F 64 16 174/87 96 08/24/17 11:41 08/24/17 11:41 08/24/17 11:41 08/24/17 11:41 08/24/17 11:41 General appearance: Present: A&O X 3, pleasant - Head Head exam: Present: atraumatic, normocephalic - Eye Eye exam: Present: PERRL, conjuntiva pink, sclera anicteric Pupils: Present: PERRL - Neck Neck exam general surgery: Present: supple, trachea midline. Absent: lymphadenopathy - Respiratory Respiratory exam: Present: CTAB. Absent: accessory muscle use, rales, rhonchi, wheezes - Cardiovascular Cardiovascular exam: Present: RRR, +S1, +S2. Absent: diastolic murmur, gallop, rubs, systolic murmur - GI/Abdominal GI/Abdominal exam: Present: normal bowel sounds, soft, no peritoneal signs. Absent: distended, tenderness - Extremities Exam Extremities exam: Present: warm, radial pulses palpable and symmetrical. Absent : calf tenderness, cyanotic, pedal edema Additional comments: Right knee and leg continues to have slight nonpitting edema. No erythema noted. - Neurological Exam Neurological exam: Present: CN II-XII intact, oriented X3, no focal deficits. Absent: pronater drift, facial droop, speech deficit - Skin Skin exam: Present: dry, intact Internal Medicine: Result - Labs CBC & Chem 7: 08/24/17 05:45 08/24/17 05:45 Labs: Short CBC 08/24/17 Range/Units 05:45 WBC 9.6 (4.3-11.1) K/mcL Hgb 10.8 L (11.5-15.4) g/dL Hct 32.5 L (35.3-44.9) % Plt Count 298 D (140-400) K/mcL Neutrophils # 7.1 (1.6-8.9) K/mcL BMP 08/24/17 05:45 Sodium 135 L Potassium 4.6 Chloride 99 Carbon Dioxide 32 H BUN 26 H Creatinine 0.91 Glucose 113 H Calcium 9.2 - ABG Interpretation ABG results: PT/INR, D-dimer PT 11.6 Seconds (9.4-12.1) 08/24/17 05:45 Consult Discharge Plan - Plan Referrals: NONE,PCP [Primary Care Provider] -
[2017-08-24] MEDS: Colchicine 0.6 MG TABLET PO SCH ×2 (14:12→19:47)
[2017-08-24] MEDS: Diltiazem CD (24hr) 120 MG CAPSULE PO SCH (14:12)
--- NOTE | 2017-08-24 17:40 | Internal Med Progress Note ---
Date of Encounter: 08/23/17 Time of Encounter: 19:00 - Assessment and plan (1) Weakness Current Visit: No Status: Acute Assessment and plan: Symptoms related to probably arthritis. Etiology is uncertain. Lab tests are pending. (2) Gout Current Visit: No Status: Acute Assessment and plan: Seems to be only slightly improved and not really the etiology. Qualifiers: Gout site: knee Gout etiology: unspecified cause Chronicity: acute Laterality: right Qualified Code(s): M10.9 - Gout, unspecified (3) HTN (hypertension) Current Visit: No Status: Acute Qualifiers: Hypertension type: essential hypertension Qualified Code(s): I10 - Essential (primary) hypertension - Subjective Interval history: Patient slightly better than yesterday. No other complaints. Feels that her swelling is decreasing. Patient has no complaint of chest discomfort, dyspnea, orthopnea, palpitations, nausea or vomiting, constipation or diarrhea, other changes in bowel habits, difficulty with urination, rash or itching, or other new complaints, except as mentioned above. Review of systems is otherwise unremarkable. - Constitutional Vitals: Temp Pulse Resp BP Pulse Ox 97.6 F 66 16 139/74 95 08/24/17 11:41 08/24/17 16:23 08/24/17 16:23 08/24/17 16:23 08/24/17 16:23 General appearance: Present: pleasant Exam: Examination: (Except as mentioned above): General: In no apparent distress. Alert and oriented 3. Nondiaphoretic. Head: Atraumatic and normocephalic. Respiratory: No use of accessory muscles. Lungs are clear throughout. Normal airflow. Cardiovascular: Regular rate and rhythm without murmur appreciated. Abdomen: Bowel sounds are normal. No hepatosplenomegaly mass or tenderness appreciated. Obese and therefore difficult to palpate deeply. Extremities: No cyanosis clubbing or edema. Slightly improved movement, will follow. Skin: Warm and non-diaphoretic with no new lesions noted. Internal Medicine: Result - Labs CBC & Chem 7: 08/24/17 05:45 08/24/17 05:45 Labs: Short CBC 08/24/17 Range/Units 05:45 WBC 9.6 (4.3-11.1) K/mcL Hgb 10.8 L (11.5-15.4) g/dL Hct 32.5 L (35.3-44.9) % Plt Count 298 D (140-400) K/mcL Neutrophils # 7.1 (1.6-8.9) K/mcL BMP 08/24/17 05:45 Sodium 135 L Potassium 4.6 Chloride 99 Carbon Dioxide 32 H BUN 26 H Creatinine 0.91 Glucose 113 H Calcium 9.2 - ABG Interpretation ABG results: PT/INR, D-dimer PT 11.6 Seconds (9.4-12.1) 08/24/17 05:45 Consult Discharge Plan - Plan Referrals: NONE,PCP [Primary Care Provider] -
[2017-08-24] MEDS: cloNIDine HCl 0.1 MG TABLET PO PRN (19:48)
[2017-08-25] MEDS: cloNIDine HCl 0.1 MG TABLET PO PRN ×2 (02:05→07:55)
[2017-08-25] MEDS: *HR* Enoxaparin 30 MG/0.3 ML SYRINGE SQ SCH (05:35)
[2017-08-25] MEDS: Colchicine 0.6 MG TABLET PO SCH ×2 (07:54→20:35)
[2017-08-25] MEDS: *HR* Digoxin 0.125 MG TABLET PO SCH (07:54)
[2017-08-25] MEDS: Diltiazem CD (24hr) 120 MG CAPSULE PO SCH (07:55)
[2017-08-25] MEDS: Aspirin Enteric Coated 325 MG Tablet PO SCH (07:55)
[2017-08-25] MEDS: predniSONE 20 MG TABLET PO SCH (07:55)
[2017-08-25] MEDS: Cholecalciferol (D-3) 1,000 UNIT TABLET PO SCH (07:55)
[2017-08-25] MEDS: cloNIDine HCl 0.1 MG TABLET PO SCH ×2 (07:55→20:35)
--- NOTE | 2017-08-25 11:14 | Internal Med Progress Note ---
Date of Encounter: 08/25/17 Time of Encounter: 11:12 - Assessment and plan (1) Weakness Current Visit: No Status: Acute Assessment and plan: Continue PT\OT. Will follow progress. (2) Right knee pain Current Visit: Yes Status: Acute Assessment and plan: Improving. Continue medication for gout and possible arthritis for etiology Qualifiers: Chronicity: acute Qualified Code(s): M25.561 - Pain in right knee (3) HTN (hypertension) Current Visit: No Status: Acute Assessment and plan: Controlled with current medication. Monitor blood pressure. Qualifiers: Hypertension type: essential hypertension Qualified Code(s): I10 - Essential (primary) hypertension - Time Spent With Patient less than 15 minutes - Subjective Interval history: Participating well with therapy. Patient states pain has improved tremendously. Still has slight swelling in right ankle area. Denies fever, chills, nausea, vomiting or diarrhea. Denies chest pain or shortness of breath. Ambulating with physical therapy. States slept well last night. Maintaining appetite and hydration. Bowels moving as normal. - Constitutional Vitals: Temp Pulse Resp BP Pulse Ox 97.7 F 63 16 182/81 97 08/25/17 07:42 08/25/17 07:42 08/25/17 07:42 08/25/17 07:42 08/25/17 07:42 General appearance: Present: cooperative, A&O X 3, pleasant, no acute distress, answers questions appropriately - Head Head exam: Present: atraumatic, normocephalic - Eye Eye exam: Present: PERRL, conjuntiva pink, sclera anicteric Pupils: Present: PERRL - Neck Neck exam general surgery: Present: supple, trachea midline. Absent: lymphadenopathy - Respiratory Respiratory exam: Present: CTAB. Absent: accessory muscle use, rales, rhonchi, wheezes - Cardiovascular Cardiovascular exam: Present: RRR, +S1, +S2. Absent: diastolic murmur, gallop, rubs, systolic murmur - GI/Abdominal GI/Abdominal exam: Present: normal bowel sounds, soft, no peritoneal signs. Absent: distended, tenderness - Extremities Exam Extremities exam: Present: warm, radial pulses palpable and symmetrical. Absent : calf tenderness, cyanotic, pedal edema Additional comments: Slight pedal edema right lower extremity. - Neurological Exam Neurological exam: Present: CN II-XII intact, oriented X3, no focal deficits. Absent: pronater drift, facial droop, speech deficit - Skin Skin exam: Present: dry, intact Internal Medicine: Result - Labs CBC & Chem 7: 08/24/17 05:45 08/24/17 05:45 - ABG Interpretation ABG results: PT/INR, D-dimer PT 11.6 Seconds (9.4-12.1) 08/24/17 05:45 Consult Discharge Plan - Plan Referrals: NONE,PCP [Primary Care Provider] -
[2017-08-25] MEDS: Levofloxacin 500 MG/100 ML 500 MG/100 ML BAG IVPB SCH (20:30)
[2017-08-26] MEDS: *HR* Enoxaparin 30 MG/0.3 ML SYRINGE SQ SCH (05:51)
[2017-08-26] MEDS: Aspirin Enteric Coated 325 MG Tablet PO SCH (07:51)
[2017-08-26] MEDS: Colchicine 0.6 MG TABLET PO SCH ×2 (07:52→21:24)
[2017-08-26] MEDS: Cholecalciferol (D-3) 1,000 UNIT TABLET PO SCH (07:53)
[2017-08-26] MEDS: Diltiazem CD (24hr) 120 MG CAPSULE PO SCH (07:53)
[2017-08-26] MEDS: traMADol 50 MG TABLET PO PRN ×2 (07:54→21:24)
[2017-08-26] MEDS: cloNIDine HCl 0.1 MG TABLET PO SCH ×2 (07:54→21:24)
[2017-08-26] MEDS: predniSONE 20 MG TABLET PO SCH (07:55)
[2017-08-26] MEDS: *HR* Digoxin 0.125 MG TABLET PO SCH (07:55)
--- NOTE | 2017-08-26 15:10 | Internal Med Progress Note ---
Date of Encounter: 08/26/17 Time of Encounter: 15:07 - Assessment and plan (1) Weakness Current Visit: No Status: Acute Assessment and plan: Continue PT\OT. Will follow progress. (2) Right knee pain Current Visit: Yes Status: Acute Assessment and plan: Improving. Continue medication for gout and possible arthritis for etiology. consult [employer]. Qualifiers: Chronicity: acute Qualified Code(s): M25.561 - Pain in right knee (3) HTN (hypertension) Current Visit: No Status: Acute Assessment and plan: Controlled with current medication. Monitor blood pressure. Qualifiers: Hypertension type: essential hypertension Qualified Code(s): I10 - Essential (primary) hypertension - Time Spent With Patient less than 15 minutes - Subjective Interval history: Participating well with therapy. Patient states pain has improved tremendously. Denies fever, chills, nausea, vomiting or diarrhea. Denies chest pain or shortness of breath. Ambulating in [place] with physical therapy. States slept well last night. Maintaining appetite and hydration. Bowels moving as normal. - Constitutional Vitals: Temp Pulse Resp BP Pulse Ox 97.7 F 73 14 155/71 96 08/26/17 09:00 08/26/17 09:00 08/26/17 09:00 08/26/17 10:10 08/26/17 09:00 General appearance: Present: cooperative, A&O X 3, pleasant, no acute distress, answers questions appropriately - Head Head exam: Present: atraumatic, normocephalic - Eye Eye exam: Present: PERRL, conjuntiva pink, sclera anicteric Pupils: Present: PERRL - Neck Neck exam general surgery: Present: supple, trachea midline. Absent: lymphadenopathy - Respiratory Respiratory exam: Present: CTAB. Absent: accessory muscle use, rales, rhonchi, wheezes - Cardiovascular Cardiovascular exam: Present: RRR, +S1, +S2. Absent: diastolic murmur, gallop, rubs, systolic murmur - GI/Abdominal GI/Abdominal exam: Present: normal bowel sounds, soft, no peritoneal signs. Absent: distended, tenderness - Extremities Exam Extremities exam: Present: warm, radial pulses palpable and symmetrical. Absent : calf tenderness, cyanotic, pedal edema - Neurological Exam Neurological exam: Present: CN II-XII intact, oriented X3, no focal deficits. Absent: pronater drift, facial droop, speech deficit - Skin Skin exam: Present: dry, intact Internal Medicine: Result - Labs CBC & Chem 7: 08/24/17 05:45 08/24/17 05:45 - ABG Interpretation ABG results: PT/INR, D-dimer PT 11.6 Seconds (9.4-12.1) 08/24/17 05:45 Consult Discharge Plan - Plan Referrals: Maycol Jesus DO [Partnered Physician] - 10/29/17 11:15 am (OUTPATIENT evaluate and treat for potential variation of polymalgia rheumatica -Please arrive 10 min early, make sure to bring an updated medication list and insurance information) NONE,PCP [Primary Care Provider] -
[2017-08-26] MEDS: cloNIDine HCl 0.1 MG TABLET PO PRN (21:24)
[2017-08-27] MEDS: *HR* Enoxaparin 30 MG/0.3 ML SYRINGE SQ SCH (06:33)
[2017-08-27] MEDS: Colchicine 0.6 MG TABLET PO SCH ×2 (08:02→19:45)
[2017-08-27] MEDS: Aspirin Enteric Coated 325 MG Tablet PO SCH (08:02)
[2017-08-27] MEDS: predniSONE 20 MG TABLET PO SCH (08:03)
[2017-08-27] MEDS: *HR* Digoxin 0.125 MG TABLET PO SCH (08:03)
[2017-08-27] MEDS: Cholecalciferol (D-3) 1,000 UNIT TABLET PO SCH (08:03)
[2017-08-27] MEDS: cloNIDine HCl 0.1 MG TABLET PO SCH ×2 (08:03→19:46)
[2017-08-27] MEDS: Diltiazem CD (24hr) 120 MG CAPSULE PO SCH (08:04)
--- NOTE | 2017-08-27 16:22 | Internal Med Progress Note ---
Date of Encounter: 08/27/17 Time of Encounter: 16:20 - Assessment and plan (1) Right knee pain Current Visit: Yes Status: Acute Assessment and plan: Patient continues as slight swelling to right knee and leg. States that she continues to have improvement of pain to her right knee and ankle. Patient has been ambulating with walker and hallway with physical therapy and progressing well. Uric acid was only 3.6. Right knee synovial fluid was negative on culture and showed no crystals. We will continue current medications. Qualifiers: Chronicity: acute Qualified Code(s): M25.561 - Pain in right knee (2) HTN (hypertension) Current Visit: No Status: Acute Assessment and plan: Patient's blood pressure remains somewhat elevated after starting on run of cortical steroids. Nurse reports patient systolic blood pressures been greater than 170 but has responded well to when necessary clonidine. We will continue with current medications and medicate with clonidine when necessary. Qualifiers: Hypertension type: essential hypertension Qualified Code(s): I10 - Essential (primary) hypertension (3) Weakness Current Visit: Yes Status: Acute Assessment and plan: Patient continues to have deconditioning required PT/OT. Patient is mobilizing well with walker. 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 - Time Spent With Patient less than 15 minutes - Subjective Interval history: Patient appears relaxed. Nurse reports patient's blood pressures been elevated with systolic greater than 170. Patient has been receiving when necessary clonidine which has been effective. States that the pain to her right knee and ankle continues to improve. States that she is able to walk better over the last fee days. Denies any dyspnea or productive cough. - Constitutional Vitals: Temp Pulse Resp BP Pulse Ox 97.6 F 65 16 168/78 95 08/27/17 07:55 08/27/17 11:47 08/27/17 11:47 08/27/17 11:47 08/27/17 11:47 General appearance: Present: cooperative, A&O X 3, pleasant, no acute distress, answers questions appropriately - Head Head exam: Present: atraumatic, normocephalic - Eye Eye exam: Present: PERRL, conjuntiva pink, sclera anicteric Pupils: Present: PERRL - Neck Neck exam general surgery: Present: supple, trachea midline. Absent: lymphadenopathy - Respiratory Respiratory exam: Present: CTAB. Absent: accessory muscle use, rales, rhonchi, wheezes - Cardiovascular Cardiovascular exam: Present: RRR, +S1, +S2. Absent: diastolic murmur, gallop, rubs, systolic murmur - GI/Abdominal GI/Abdominal exam: Present: normal bowel sounds, soft, no peritoneal signs. Absent: distended, tenderness - Extremities Exam Extremities exam: Present: joint swelling, warm, radial pulses palpable and symmetrical. Absent: calf tenderness, cyanotic, pedal edema Additional comments: Patient's right knee remains slightly swollen. - Neurological Exam Neurological exam: Present: CN II-XII intact, oriented X3, no focal deficits. Absent: pronater drift, facial droop, speech deficit - Skin Skin exam: Present: dry, intact Internal Medicine: Result - Labs CBC & Chem 7: 08/24/17 05:45 08/24/17 05:45 - ABG Interpretation ABG results: PT/INR, D-dimer PT 11.6 Seconds (9.4-12.1) 08/24/17 05:45 - VTE Documentation of Mechanical Device: Graduated compression elastic hosiery Consult Discharge Plan - Plan Instructions: Chronic Hypertension (DC) Referrals: Maycol Jesus DO [Partnered Physician] - 10/29/17 11:15 am (OUTPATIENT evaluate and treat for potential variation of polymalgia rheumatica -Please arrive 10 min early, make sure to bring an updated medication list and insurance information) Dae Matamoros [Non-Partnered Physician] - (contact physician to schedule appointment with primary care physician within 1 week of discharge)
[2017-08-27] MEDS: traMADol 50 MG TABLET PO PRN (19:45)
[2017-08-27] MEDS: Levofloxacin 500 MG/100 ML 500 MG/100 ML BAG IVPB SCH (19:46)
[2017-08-27] MEDS: cloNIDine HCl 0.1 MG TABLET PO PRN ×2 (19:46→23:57)
[2017-08-28] MEDS: *HR* Enoxaparin 30 MG/0.3 ML SYRINGE SQ SCH (03:35)
[2017-08-28 07:20] LABS: BUN/Creatinine Ratio 18 (6-26); Blood Urea Nitrogen 16 mg/dL (8-23); Calcium 9.1 mg/dL (8.6-10.3); Carbon Dioxide 33 mEq/L (23-29); Chloride 99 mEq/L (98-107); Glucose 81 mg/dL (70-105); Osmolality,Calculated 286 (280-300); Potassium 3.6 mEq/L (3.5-5.1); Sodium 138 mEq/L (136-145); eGFR For African Americans > 60 (> 60); eGFR For Non-African Americans 58 (> 60)
[2017-08-28 08:19] LABS: SSA 52 (Anti-RO) Antibody 2 AU/mL (0-40); SSA 60 (Anti-RO) Antibody 2 AU/mL (0-40)
[2017-08-28 08:20] LABS: ANA IgG by ELISA NONE DETECTED (None Detected)
[2017-08-28] MEDS: Colchicine 0.6 MG TABLET PO SCH (09:17)
[2017-08-28] MEDS: Diltiazem CD (24hr) 120 MG CAPSULE PO SCH (09:17)
[2017-08-28] MEDS: *HR* Digoxin 0.125 MG TABLET PO SCH (09:18)
[2017-08-28] MEDS: Aspirin Enteric Coated 325 MG Tablet PO SCH (09:18)
[2017-08-28] MEDS: cloNIDine HCl 0.1 MG TABLET PO SCH (09:19)
[2017-08-28] MEDS: predniSONE 20 MG TABLET PO SCH (09:20)
[2017-08-28] MEDS: Cholecalciferol (D-3) 1,000 UNIT TABLET PO SCH (09:20)
--- NOTE | 2017-08-28 09:31 | Discharge Summary ---
Orders not resulted at time of discharge: Pending orders 08/31/17 04:00 Activated Partial Thrombo Time [COAG] MO Basic Metabolic Panel MO Complete Blood Count [HEME] MO Prothrombin Time INR [COAG] MO 09/07/17 04:00 Activated Partial Thrombo Time [COAG] MO Basic Metabolic Panel MO Complete Blood Count [HEME] MO Prothrombin Time INR [COAG] MO 09/14/17 04:00 Activated Partial Thrombo Time [COAG] MO Basic Metabolic Panel MO Complete Blood Count [HEME] MO Prothrombin Time INR [COAG] MO 09/21/17 04:00 Activated Partial Thrombo Time [COAG] MO Basic Metabolic Panel MO Complete Blood Count [HEME] MO Prothrombin Time INR [COAG] MO 09/28/17 04:00 Activated Partial Thrombo Time [COAG] MO Basic Metabolic Panel MO Complete Blood Count [HEME] MO Prothrombin Time INR [COAG] MO 10/05/17 04:00 Activated Partial Thrombo Time [COAG] MO Basic Metabolic Panel MO Complete Blood Count [HEME] MO Prothrombin Time INR [COAG] MO 10/12/17 04:00 Activated Partial Thrombo Time [COAG] MO Basic Metabolic Panel MO Complete Blood Count [HEME] MO Prothrombin Time INR [COAG] MO 10/19/17 04:00 Activated Partial Thrombo Time [COAG] MO Basic Metabolic Panel MO Complete Blood Count [HEME] MO Prothrombin Time INR [COAG] MO 10/26/17 04:00 Activated Partial Thrombo Time [COAG] MO Basic Metabolic Panel MO Complete Blood Count [HEME] MO Prothrombin Time INR [COAG] MO Date of Encounter: 08/28/17 Time of Encounter: 09:25 - Discharge Diagnosis (1) Right knee pain Priority: Primary Status: Acute Qualifiers: Chronicity: acute Qualified Code(s): M25.561 - Pain in right knee (2) HTN (hypertension) Priority: Secondary Status: Chronic Qualifiers: Hypertension type: essential hypertension Qualified Code(s): I10 - Essential (primary) hypertension (3) Weakness Priority: Secondary Status: Chronic Hospital course: Ms. Murray is a 87 year old female was admitted with inability to walk secondary to swelling and pain to her right knee and ankle. Patient's right knee and ankle or evaluated showed no acute process. Right knee was tapped with aspiration showing no organisms or crystals. Patient had a uric acid drawn, which was 3.6 and her rheumatoid factor was negative. History of polyarthritis and hypertension. Seen in consultation by orthopedic clinic where ultrasound and acute radiographs were requested were negative. It was decided the patient to follow-up with rheumatoidologist. Patient was placed on cortical steroids until her initial visit, which the earliest was in October. Patient did have issues with elevations of blood pressure after she was started on cortical steroids with systolic blood pressure greater than 170. Patient's medications were titrated and currently her systolic stays between 160 and 170. Patient is to continue on current medications at home with continued evaluation by home health nursing and PCP. Patient was admitted to physical therapy due to her weakness and currently is able to walk with the use of a walker. Patient states that her right knee and ankle pain has improved and is tolerable with current medications. Discharge discussed with: patient Time spent discussing smoking cessation with patient: 3 to 10 minutes - Time Spent with Patient Total time spent providing and/or coordinating discharge services: Less than 30 minutes - Discharge Medications Home Medications: Aspirin Enteric Coated [Aspirin EC] 325 mg PO DAILY 08/18/17 [History] Atorvastatin Calcium [Lipitor] 10 mg PO DAILY 08/18/17 [History] Calcium Carbonate/Vitamin D3 [Oyster Shell 250 mg + Vit D Tb] 1 each PO DAILY [History] CloNIDine HCl [Kapvay] 0.1 mg PO DAILY 08/18/17 [History] Digoxin [Lanoxin] 125 mcg PO DAILY 08/18/17 [History] Diltiazem HCl [Diltiazem 24Hr Cd] 120 mg PO DAILY 08/18/17 [History] Levothyroxine Sodium [Levoxyl] 100 mcg PO DAILY 08/18/17 [History] Naproxen [Naprosyn] 500 mg PO BID PRN 08/18/17 [History] Sotalol 80 mg PO DAILY 08/18/17 [History] Allergies/Adverse Reactions: 3 Allergy/AdvReac Type Severity Reaction Status Date / Time No Known Allergies Allergy Verified 08/17/17 20:31 Date of admission: 08/21/17 18:48 Primary care physician: PCP NONE Consults: 08/21/17 18:54 Consult to Occupational Therapy [CONS] Routine Comment: Evaluate, develop and implement POC Reason for Consult: deocnditioning Does patient have active BEDREST order?: No Is patient medically & hemodynamically stable?: Yes Patient assessed for mobility or mobilized this visit?: Yes Consult to Physical Therapy [CONS] Routine Comment: Evaluate, develop and implement POC Reason for Consult: deconditioning Does patient have active BEDREST order?: No Is patient medically & hemodynamically stable?: Yes Patient assessed for mobility or mobilized this visit?: Yes Consult to Detacker [CONS] Routine Reason for SW Consult: swing for deconditioning Discharging clinician: Mickey De Guzman Anticipated date of discharge: 08/28/17 - Constitutional Vitals: Temp Pulse Resp BP Pulse Ox 98.3 F 67 17 168/92 96 08/28/17 07:30 08/28/17 07:30 08/28/17 07:30 08/28/17 07:30 08/28/17 07:30 General appearance: Present: cooperative, A&O X 3, pleasant, no acute distress, answers questions appropriately - Head Head exam: Present: atraumatic, normocephalic - Eye Eye exam: Present: PERRL, conjuntiva pink, sclera anicteric Pupils: Present: PERRL - Neck Neck exam general surgery: Present: supple, trachea midline. Absent: lymphadenopathy - Respiratory Respiratory exam: Present: CTAB. Absent: accessory muscle use, rales, rhonchi, wheezes - Cardiovascular Cardiovascular exam: Present: RRR, +S1, +S2. Absent: diastolic murmur, gallop, rubs, systolic murmur - GI/Abdominal GI/Abdominal exam: Present: normal bowel sounds, soft, no peritoneal signs. Absent: distended, tenderness - Extremities Exam Extremities exam: Present: joint swelling, warm, radial pulses palpable and symmetrical. Absent: calf tenderness, cyanotic, pedal edema Additional comments: Right knee has slight swelling but no erythema noted. Right ankle is slightly swollen with a small amount of erythema - Neurological Exam Neurological exam: Present: CN II-XII intact, oriented X3, no focal deficits. Absent: pronater drift, facial droop, speech deficit - Skin Skin exam: Present: dry, intact - Patient Status Disposition: Home Health Service Condition: Good Functional capacity at discharge: uses cane/walker Overall status at discharge: patient is progressing back to baseline - Discharge Instructions Instructions: Chronic Hypertension (DC) Follow Up With: Maycol Jesus DO [Partnered Physician] - 10/29/17 11:15 am (OUTPATIENT evaluate and treat for potential variation of polymalgia rheumatica -Please arrive 10 min early, make sure to bring an updated medication list and insurance information) Dae Matamoros [Non-Partnered Physician] - (contact physician to schedule appointment with primary care physician within 1 week of discharge) - Diet and Activity Activity: ambulate only with your walker, as per physical therapy, increase activity as tolerated, resume usual activities as tolerated Diet: advance to your usual diet - VTE Documentation of Mechanical Device: Graduated compression elastic hosiery
--- NOTE | 2017-08-28 09:35 | Physician Discharge Referral ---
Home Health/Hosp Referral Info Transfer to: Home Health Provider in Charge Post Discharge: PCP - Diagnosis (1) Right knee pain Priority: Primary Status: Acute (2) HTN (hypertension) Priority: Secondary Status: Chronic (3) Weakness Priority: Secondary Status: Chronic - Respiratory Orders Smoking Cessation: Smoking cessation has been advised. For more information, call the [place] Tobacco Quit Line at 1-374-XPDC-NOW. - Diet/Nutrition Diet/Nutrition Orders: Regular, No Added Salt (GABRIEL) - Activity Activity Orders: Up ad tanya, Walker - Services Needed Following services are medically necessary services: Nursing, Home Health Aide, Physical Therapy (Please monitor blood pressure closely.) - Transfer Medications Home Medications: Aspirin Enteric Coated [Aspirin EC] 325 mg PO DAILY 08/18/17 [History] Atorvastatin Calcium [Lipitor] 10 mg PO DAILY 08/18/17 [History] Calcium Carbonate/Vitamin D3 [Oyster Shell 250 mg + Vit D Tb] 1 each PO DAILY [History] CloNIDine HCl [Kapvay] 0.1 mg PO DAILY 08/18/17 [History] Digoxin [Lanoxin] 125 mcg PO DAILY 08/18/17 [History] Diltiazem HCl [Diltiazem 24Hr Cd] 120 mg PO DAILY 08/18/17 [History] Levothyroxine Sodium [Levoxyl] 100 mcg PO DAILY 08/18/17 [History] Naproxen [Naprosyn] 500 mg PO BID PRN 08/18/17 [History] Sotalol 80 mg PO DAILY 08/18/17 [History] Allergies/Adverse Reactions: 3 Allergy/AdvReac Type Severity Reaction Status Date / Time No Known Allergies Allergy Verified 08/17/17 20:31 Certification: Further, I certify that my clinical findings support that this patient is homebound (i.e. absences from home require considerable and taxing effort and are for medical reasons or tenriism services or infrequently or short duration when for other reasons) because: Homebound Reason: Patient requires assistance of a person or device to safely leave home, Leaving home requires considerable and taxing effort due to condition Attestation: My signature below is to certify that this patient is under my care and that I, or nurse practitioner, or a physician's assistant signal maintainer working with me, has a face-to -face encounter with this patient.
[2017-08-28 12:44] VITALS: BP 134/81
[2017-08-28] MEDS ORDERED: cloNIDine HCl 0.1 MG TABLET PO SCH (15:00)
== END 2017-08-28 15:20 | disposition home health service (06) | DRG 946 ==
LOC: INPGRE 18:48